=== PATIENT | male | born 1950 | race African-American/Black ===

== ENCOUNTER 2020-10-23 12:02 | Inpatient (IN) ==
[2020-10-23] MEDS ORDERED: AMIODARONE INJ 150 MG in DEXTROSE 5% 100 ML IV ONE ×2 (12:07→13:44)
[2020-10-23] MEDS ORDERED: AMIODARONE 150 MG/3 ML VIAL ONE ×2 (12:11→13:16)
[2020-10-23] MEDS ORDERED: AMIODARONE 450 MG/9 ML VIAL IV ONE (12:13)
[2020-10-23] MEDS ORDERED: propofoL 200 MG/20 ML VIAL IV STA (12:13)
[2020-10-23] MEDS ORDERED: AMIODARONE INJ 450 MG in DEXTROSE 5% 241 ML IV SCH (12:30)
[2020-10-23] MEDS ORDERED: ROCURONIUM 100 MG/10 ML VIAL IV ONE (12:53)
[2020-10-23] MEDS ORDERED: MIDAZOLAM 2 MG/2 ML VIAL ONE (13:10)
[2020-10-23] MEDS ORDERED: LIDOCAINE 1%/EPI INJ 20 ML VIAL ONE (13:10)
[2020-10-23] MEDS ORDERED: fentaNYL 100 MCG/2 ML VIAL ONE (13:10)
[2020-10-23 13:12] LABS: Basophils # 0.1 10*3/uL (0.0-0.2); Basophils % 0.4 % (0.0-0.8); Eosinophils % 0.2 % (0.00-10.9); Hematocrit 34.7 VOL% (42.0-52.0); Hemoglobin 10.8 GM/DL (14.0-18.0); Immature Granulocytes % 3.8 %; Immature Granulocytes Absolute 0.48 #; Lymphocytes % 16.1 % (21.2-54.2); Mean Corpuscular HGB Conc 31.1 GM/DL (32-36); Monocytes % 5.7 % (1.7-12.7); Neutrophils % 73.8 % (38.7-73.9); Platelet Count 298 T/CUMM (130-400); Red Blood Count 4.18 MC/CUMM (3.8-5.5); Red Cell Distribution Width 15.8 % (9.3-17.3); White Blood Count 12.7 T/CUMM (4-12)
[2020-10-23] MEDS ORDERED: MAGNESIUM SULF RIDER 2 GM in PREMIX 1 EACH IV PRN (13:12)
[2020-10-23] MEDS ORDERED: DOCUSATE SODIUM 100 MG CAPSULE PO PRN (13:12)
[2020-10-23] MEDS ORDERED: PROMETHAZINE 25 MG TABLET PO PRN (13:12)
[2020-10-23] MEDS ORDERED: ALUMINUM/MAGNES/SIMETH MAX STR 30 ML UDCUP PO PRN (13:12)
[2020-10-23] MEDS ORDERED: ONDANSETRON 4 MG/2 ML VIAL IV PRN (13:12)
[2020-10-23] MEDS ORDERED: MAGNESIUM SULF RIDER 4 GM in PREMIX 1 EACH IV PRN (13:12)
[2020-10-23] MEDS ORDERED: guaiFENesin/DM ER 600-30 MG TABLET PO PRN (13:12)
[2020-10-23] MEDS ORDERED: HEPARIN/NACL 0.9% 2 UNITS/ML 1,000 ML IV ONE (13:13)
[2020-10-23] MEDS ORDERED: METOPROLOL TARTRATE 5 MG/5 ML VIAL IV ONE (13:16)
[2020-10-23] MEDS ORDERED: NITROGLYCERIN DRIP 50 MG/250 ML BOTTLE IV ONE (13:28)
[2020-10-23 13:36] LABS: Alanine Aminotransferase 75 U/L (16-61); Alkaline Phosphatase 66 U/L (45-117); Aspartate Amino Transferase 94 U/L (0-37); Bilirubin,Total < 0.39 MG/DL (0.2-1.0); Blood Urea Nitrogen 17 MG/DL (7-18); Calcium 8.5 MG/DL (8.5-10.1); Carbon Dioxide 23 MMOL/L (21-32); Estimated Glom Filtration Rate 72 ML/MIN; Glucose 168 MG/DL (74-106); Osmolality,Calculated 286.3 MOS/KG (273-304); Potassium 3.5 MMOL/L (3.5-5.1); Sodium 141 MMOL/L (136-145); Total Protein 8.3 G/DL (6.4-8.3)
[2020-10-23 13:44] LABS: Bilirubin,Urine Negative (Negative); Blood, Urine Small mg/dL (Negative); Glucose,Urine (UA) Negative (Negative); Ketones,Urine Negative (Negative); Mucus,Urine Occasional /LPF (Occasional); Nitrite,Urine Negative (Negative); Protein,Urine 100 MG/DL; RBC,Urine 6 /HPF (0-4); Urine Appearance CLEAR (Clear); Urine Color Straw (Yellow); Urine Specific Gravity 1.012 (1.001-1.035); Urine Urobilinogen < 2.0 EU/DL (0.2-1.0); WBC,Urine 2 /HPF (0-6)
[2020-10-23 13:48] LABS: Barbiturates Screen,Urine Negative (Negative); Benzodiazepines Screen,Urine Negative (Negative); Cannabinoid Screen,Urine Negative (Negative); Opiate Screen,Urine Positive (Negative); Phencyclidine Screen,Urine Negative (Negative)
[2020-10-23] MEDS ORDERED: MAGNESIUM SULF RIDER 2 GM in PREMIX 1 EACH IV ONE (13:48)
[2020-10-23 14:01] LABS: ABG Base Excess -2.7 MMOL/L (-2.5-2.5); ABG HCO3 22.2 MMOL/L (20-26); ABG PCO2 44.1 MM HG (35-48); ABG PH 7.331 (7.35-7.45); ABG TCO2 21.1 MMOL/L (23-27)
[2020-10-23] MEDS ORDERED: PHENYLEPHRINE DRIP 40 MG/250 ML PREMIX IV PRN (14:03)
[2020-10-23] MEDS ORDERED: NOREPINEPHRINE 16 MG in SODIUM CHLORIDE 0.9% 234 ML IV PRN (14:03)
[2020-10-23 14:53] LABS: PT Patient Result 11.1 SECS (9.8-11.9); Partial Thromboplastin Time 28.7 SECS (23.9-33.8)
[2020-10-23 15:06] LABS: Troponin I 0.155 NG/ML (0.00-0.045)
[2020-10-23] MEDS: fentaNYL INJ 1,250 MCG in SODIUM CHLORIDE 0.9% 225 ML IV PRN (15:27)
[2020-10-23] MEDS: MIDAZOLAM 100 MG in SODIUM CHLORIDE 0.9% 80 ML IV PRN (15:30)
[2020-10-23] MEDS ORDERED: NOREPINEPHRINE 4 MG/4 ML VIAL IV ONE (15:41)
[2020-10-23] MEDS: CISATRACURIUM 200 MG in SODIUM CHLORIDE 0.9% 180 ML IV PRN (16:10)
[2020-10-23] MEDS: carvediloL 3.125 MG TABLET PO SCH ×2 (16:11→20:26)
[2020-10-23] MEDS: POTASSIUM CHLORIDE RIDER 10 MEQ in PREMIX 1 EACH IV SCH ×2 (16:11→16:12)
[2020-10-23] MEDS: lisinopriL 2.5 MG TABLET PO SCH (16:12)
[2020-10-23 16:23] LABS: ABG Base Excess -4.2 MMOL/L (-2.5-2.5); ABG PCO2 36.2 MM HG (35-48); ABG PH 7.363 (7.35-7.45); ABG TCO2 18.4 MMOL/L (23-27)
[2020-10-23] MEDS ORDERED: INSULIN LISPRO 100 UNIT/ML SUBCUT SCH (16:30)
[2020-10-23] MEDS ORDERED: SODIUM CHLORIDE 0.9% 1,000 ML IV ONE ×2 (16:33→18:00)
[2020-10-23] MEDS: ENOXAPARIN 40 MG/0.4 ML SYRINGE SUBCUT SCH (16:56)
[2020-10-23] MEDS: POTASSIUM CHLORIDE RIDER 20 MEQ in PREMIX 1 EACH IV SCH ×2 (16:56→19:39)
[2020-10-23] MEDS ORDERED: PHENYLEPHRINE INJ 160 MG in SODIUM CHLORIDE 0.9% 234 ML IV PRN (16:58)
[2020-10-23] MEDS ORDERED: INSULIN REGULAR 100 UNIT/ML IV ONE ×2 (17:57→19:28)
[2020-10-23 18:37] LABS: Basophils % 0.2 % (0.0-0.8); Eosinophils % 0.1 % (0.00-10.9); Hematocrit 31.1 VOL% (42.0-52.0); Hemoglobin 9.4 GM/DL (14.0-18.0); Immature Granulocytes % 1.2 %; Immature Granulocytes Absolute 0.23 #; Lymphocytes # 1.2 10*3/uL (1.4-4.0); Lymphocytes % 6.2 % (21.2-54.2); Mean Corpuscular HGB Conc 30.2 GM/DL (32-36); Mean Corpuscular Volume 84.3 FL (87-102); Mean Platelet Volume 8.9 FL (9.6-12.0); Monocytes % 5.1 % (1.7-12.7); Neutrophils % 87.2 % (38.7-73.9); Platelet Count 306 T/CUMM (130-400); Red Blood Count 3.69 MC/CUMM (3.8-5.5); Red Cell Distribution Width 15.8 % (9.3-17.3); White Blood Count 19.5 T/CUMM (4-12)
[2020-10-23 18:57] LABS: CKMB % 3.8 %; Calcium 7.9 MG/DL (8.5-10.1); Potassium 4.1 MMOL/L (3.5-5.1)
[2020-10-23 18:59] LABS: Troponin I 2.64 NG/ML (0.00-0.045)
[2020-10-23] MEDS: ALBUTEROL/IPRATROPIUM 3 ML NEB RESP TX SCH (19:03)
[2020-10-23 19:04] LABS: PT Patient Result 11.2 SECS (9.8-11.9); Partial Thromboplastin Time 30.2 SECS (23.9-33.8)
[2020-10-24 00:13] LABS: ABG Base Excess -3.9 MMOL/L (-2.5-2.5); ABG HCO3 19.9 MMOL/L (20-26); ABG Oxygen Saturation 99.3 % (95-100); ABG PCO2 31.4 MM HG (35-48); ABG PO2 307.7 MM HG (80-95); ABG TCO2 20.9 MMOL/L (23-27)
[2020-10-24 00:35] LABS: CKMB % 4.8 %; Calcium 7.8 MG/DL (8.5-10.1); Osmolality,Calculated 282.1 MOS/KG (273-304); Potassium 4.5 MMOL/L (3.5-5.1)
[2020-10-24 00:38] LABS: Troponin I 3.76 NG/ML (0.00-0.045)
[2020-10-24] MEDS ORDERED: INSULIN REGULAR 100 UNIT/ML IV ONE ×7 (00:49→22:29)
[2020-10-24] MEDS: ALBUTEROL/IPRATROPIUM 3 ML NEB RESP TX SCH ×4 (01:18→19:47)
[2020-10-24 01:33] LABS: Basophils % 0.1 % (0.0-0.8); Hematocrit 28.7 VOL% (42.0-52.0); Hemoglobin 8.9 GM/DL (14.0-18.0); Immature Granulocytes % 0.9 %; Immature Granulocytes Absolute 0.12 #; Lymphocytes # 1.2 10*3/uL (1.4-4.0); Lymphocytes % 9.2 % (21.2-54.2); Mean Corpuscular Volume 83.4 FL (87-102); Mean Platelet Volume 9.5 FL (9.6-12.0); Monocytes % 3.3 % (1.7-12.7); Neutrophils % 86.5 % (38.7-73.9); Platelet Count 250 T/CUMM (130-400); Red Blood Count 3.44 MC/CUMM (3.8-5.5); Red Cell Distribution Width 15.9 % (9.3-17.3); White Blood Count 13.2 T/CUMM (4-12)
[2020-10-24 01:40] LABS: INR 1.1; PT Patient Result 11.3 SECS (9.8-11.9); Partial Thromboplastin Time 34.6 SECS (23.9-33.8)
[2020-10-24] MEDS: ENOXAPARIN 40 MG/0.4 ML SYRINGE SUBCUT SCH ×2 (02:54→15:14)
[2020-10-24] MEDS: fentaNYL INJ 1,250 MCG in SODIUM CHLORIDE 0.9% 225 ML IV PRN ×2 (02:56→13:45)
[2020-10-24 04:02] LABS: Basophils % 0.1 % (0.0-0.8); Eosinophils % 0.1 % (0.00-10.9); Hematocrit 28.2 VOL% (42.0-52.0); Hemoglobin 8.9 GM/DL (14.0-18.0); Immature Granulocytes Absolute 0.11 #; Lymphocytes # 1.4 10*3/uL (1.4-4.0); Lymphocytes % 12.5 % (21.2-54.2); Mean Corpuscular HGB Conc 31.6 GM/DL (32-36); Mean Corpuscular Volume 82.5 FL (87-102); Mean Platelet Volume 8.6 FL (9.6-12.0); Monocytes % 4.5 % (1.7-12.7); Neutrophils % 81.8 % (38.7-73.9); Platelet Count 231 T/CUMM (130-400); Red Blood Count 3.42 MC/CUMM (3.8-5.5); Red Cell Distribution Width 15.8 % (9.3-17.3); White Blood Count 11.4 T/CUMM (4-12)
[2020-10-24] MEDS: SODIUM CHLORIDE 0.9% 1,000 ML IV SCH ×2 (04:04→17:13)
[2020-10-24 04:21] LABS: Alanine Aminotransferase 54 U/L (16-61); Albumin 2.4 G/DL (3.4-5.0); Alkaline Phosphatase 52 U/L (45-117); Aspartate Amino Transferase 47 U/L (0-37); Bilirubin,Total < 0.39 MG/DL (0.2-1.0); Blood Urea Nitrogen 17 MG/DL (7-18); CKMB % 5.4 %; Calcium 8.1 MG/DL (8.5-10.1); Carbon Dioxide 19 MMOL/L (21-32); Estimated Glom Filtration Rate 118 ML/MIN; Glucose 225 MG/DL (74-106); HDL Cholesterol 35 MG/DL (40-60); Osmolality,Calculated 283.7 MOS/KG (273-304); Potassium 3.6 MMOL/L (3.5-5.1); Sodium 138 MMOL/L (136-145); Total Protein 6.5 G/DL (6.4-8.3); Triglycerides 130 MG/DL (2-150)
[2020-10-24 04:26] LABS: PT Patient Result 11.2 SECS (9.8-11.9)
[2020-10-24 05:10] LABS: ABG Base Excess -2.3 MMOL/L (-2.5-2.5); ABG HCO3 22.5 MMOL/L (20-26); ABG Oxygen Saturation 99.9 % (95-100); ABG PCO2 31.4 MM HG (35-48); ABG PH 7.438 (7.35-7.45); ABG TCO2 19.5 MMOL/L (23-27)
[2020-10-24] MEDS ORDERED: POTASSIUM CHLORIDE RIDER 20 MEQ in PREMIX 1 EACH IV ONE ×3 (05:30→17:05)
[2020-10-24] MEDS ORDERED: DOPamine 800 MG/250 ML PREMIX IV PRN (05:32)
[2020-10-24] MEDS: ASPIRIN CHEW 81 MG TABLET PO SCH (08:07)
[2020-10-24] MEDS: PANTOPRAZOLE 40 MG VIAL IV SCH (08:07)
[2020-10-24] MEDS: lisinopriL 2.5 MG TABLET PO SCH (08:15)
[2020-10-24] MEDS: MIDAZOLAM 100 MG in SODIUM CHLORIDE 0.9% 80 ML IV PRN ×2 (08:19→20:57)
[2020-10-24] MEDS: CISATRACURIUM 200 MG in SODIUM CHLORIDE 0.9% 180 ML IV PRN (08:20)
[2020-10-24] MEDS ORDERED: PANTOPRAZOLE 40 MG TABLET PO SCH (09:00)
[2020-10-24 10:11] LABS: ABG Base Excess -0.7 MMOL/L (-2.5-2.5); ABG HCO3 23.9 MMOL/L (20-26); ABG PCO2 29.2 MM HG (35-48); ABG PH 7.485 (7.35-7.45); ABG TCO2 20.1 MMOL/L (23-27); Basophils % 0.2 % (0.0-0.8); Hematocrit 28.5 VOL% (42.0-52.0); Hemoglobin 9.2 GM/DL (14.0-18.0); Immature Granulocytes % 0.7 %; Immature Granulocytes Absolute 0.07 #; Lymphocytes # 1.1 10*3/uL (1.4-4.0); Lymphocytes % 11.2 % (21.2-54.2); Mean Corpuscular HGB Conc 32.3 GM/DL (32-36); Mean Corpuscular Volume 81.9 FL (87-102); Mean Platelet Volume 9.2 FL (9.6-12.0); Neutrophils % 83.9 % (38.7-73.9); Platelet Count 228 T/CUMM (130-400); Red Blood Count 3.48 MC/CUMM (3.8-5.5); Red Cell Distribution Width 15.8 % (9.3-17.3); White Blood Count 10.1 T/CUMM (4-12)
[2020-10-24 10:26] LABS: PT Patient Result 11.2 SECS (9.8-11.9); Partial Thromboplastin Time 36.2 SECS (23.9-33.8)
[2020-10-24 10:38] LABS: CKMB % 5.2 %; Calcium 7.9 MG/DL (8.5-10.1); Osmolality,Calculated 287.4 MOS/KG (273-304); Potassium 3.4 MMOL/L (3.5-5.1)
[2020-10-24 10:40] LABS: Troponin I 3.02 NG/ML (0.00-0.045)
[2020-10-24] MEDS ORDERED: MAGNESIUM SULF RIDER 2 GM in PREMIX 1 EACH IV ONE (12:05)
[2020-10-24 16:26] LABS: PT Patient Result 11.2 SECS (9.8-11.9); Partial Thromboplastin Time 36.6 SECS (23.9-33.8)
[2020-10-24 16:49] LABS: CKMB % 5.5 %; Calcium 7.9 MG/DL (8.5-10.1); Osmolality,Calculated 281.7 MOS/KG (273-304); Potassium 3.3 MMOL/L (3.5-5.1)
[2020-10-24 17:00] LABS: Troponin I 2.29 NG/ML (0.00-0.045)
[2020-10-24] MEDS ORDERED: SODIUM CHLORIDE 0.9% 100 ML IV ONE (17:31)
[2020-10-24] MEDS: hydrALAZINE 20 MG/1 ML VIAL IV PRN (19:49)
[2020-10-24] MEDS: ROSUVASTATIN 20 MG TABLET PO SCH (21:46)
[2020-10-24 21:54] LABS: Basophils % 0.2 % (0.0-0.8); Hematocrit 30.2 VOL% (42.0-52.0); Hemoglobin 9.5 GM/DL (14.0-18.0); Immature Granulocytes % 0.9 %; Immature Granulocytes Absolute 0.08 #; Lymphocytes # 0.8 10*3/uL (1.4-4.0); Lymphocytes % 8.7 % (21.2-54.2); Mean Corpuscular HGB Conc 31.5 GM/DL (32-36); Mean Corpuscular Volume 81.6 FL (87-102); Monocytes % 4.4 % (1.7-12.7); Neutrophils % 85.8 % (38.7-73.9); Platelet Count 219 T/CUMM (130-400); Red Cell Distribution Width 15.6 % (9.3-17.3); White Blood Count 9.4 T/CUMM (4-12)
[2020-10-24 22:06] LABS: INR 1.1; PT Patient Result 11.3 SECS (9.8-11.9); Partial Thromboplastin Time 38.8 SECS (23.9-33.8)
[2020-10-24 22:16] LABS: CKMB % 4.6 %; Calcium 7.6 MG/DL (8.5-10.1); Osmolality,Calculated 282.5 MOS/KG (273-304); Potassium 3.6 MMOL/L (3.5-5.1)
[2020-10-24 22:17] LABS: Troponin I 1.81 NG/ML (0.00-0.045)
[2020-10-25] MEDS ORDERED: INSULIN REGULAR 100 UNIT/ML IV ONE ×5 (00:46→08:00)
[2020-10-25] MEDS: CISATRACURIUM 200 MG in SODIUM CHLORIDE 0.9% 180 ML IV PRN (01:05)
[2020-10-25] MEDS: fentaNYL INJ 1,250 MCG in SODIUM CHLORIDE 0.9% 225 ML IV PRN (01:15)
[2020-10-25] MEDS: ALBUTEROL/IPRATROPIUM 3 ML NEB RESP TX SCH ×4 (01:30→19:39)
[2020-10-25] MEDS: ENOXAPARIN 40 MG/0.4 ML SYRINGE SUBCUT SCH ×2 (02:48→13:10)
[2020-10-25 04:25] LABS: ABG Base Excess -2.3 MMOL/L (-2.5-2.5); ABG HCO3 22.5 MMOL/L (20-26); ABG Oxygen Saturation 99.2 % (95-100); ABG PCO2 33.7 MM HG (35-48); ABG PH 7.416 (7.35-7.45); ABG TCO2 19.7 MMOL/L (23-27)
[2020-10-25 04:36] LABS: Basophils % 0.1 % (0.0-0.8); Hematocrit 29.6 VOL% (42.0-52.0); Hemoglobin 9.7 GM/DL (14.0-18.0); Immature Granulocytes % 0.9 %; Immature Granulocytes Absolute 0.11 #; Lymphocytes # 0.5 10*3/uL (1.4-4.0); Lymphocytes % 4.1 % (21.2-54.2); Mean Corpuscular HGB Conc 32.8 GM/DL (32-36); Mean Corpuscular Volume 80.4 FL (87-102); Mean Platelet Volume 9.1 FL (9.6-12.0); Monocytes % 4.3 % (1.7-12.7); Neutrophils % 90.6 % (38.7-73.9); Platelet Count 239 T/CUMM (130-400); Red Blood Count 3.68 MC/CUMM (3.8-5.5); Red Cell Distribution Width 15.8 % (9.3-17.3); White Blood Count 12.7 T/CUMM (4-12)
[2020-10-25 04:52] LABS: Alanine Aminotransferase 44 U/L (16-61); Albumin 2.3 G/DL (3.4-5.0); Alkaline Phosphatase 55 U/L (45-117); Aspartate Amino Transferase 30 U/L (0-37); Bilirubin,Total < 0.39 MG/DL (0.2-1.0); Blood Urea Nitrogen 14 MG/DL (7-18); Calcium 7.6 MG/DL (8.5-10.1); Carbon Dioxide 22 MMOL/L (21-32); Estimated Glom Filtration Rate 96 ML/MIN; Glucose 185 MG/DL (74-106); Osmolality,Calculated 284.4 MOS/KG (273-304); Sodium 140 MMOL/L (136-145); Total Protein 6.6 G/DL (6.4-8.3)
[2020-10-25 05:03] LABS: PT Patient Result 11.2 SECS (9.8-11.9)
[2020-10-25 05:07] LABS: Band Neutrophils 4 % (0-10); Hypochromasia 1+; Lymphocytes 4 % (20-55); Microcytosis 1+; Myelocytes 1 %; Segmented Neutrophils 87 % (50-85); Total Cells Counted 100
[2020-10-25 05:08] LABS: Platelet Estimate Normal
[2020-10-25] MEDS: SODIUM CHLORIDE 0.9% 1,000 ML IV SCH (06:20)
[2020-10-25] MEDS ORDERED: SODIUM CHLORIDE 0.9% 500 ML IV ONE (08:00)
[2020-10-25 08:06] LABS: Basophils % 0.1 % (0.0-0.8); Hematocrit 30.4 VOL% (42.0-52.0); Hemoglobin 9.4 GM/DL (14.0-18.0); Immature Granulocytes Absolute 0.14 #; Lymphocytes # 0.8 10*3/uL (1.4-4.0); Lymphocytes % 5.8 % (21.2-54.2); Mean Corpuscular HGB Conc 30.9 GM/DL (32-36); Mean Corpuscular Volume 81.9 FL (87-102); Mean Platelet Volume 9.1 FL (9.6-12.0); Monocytes % 4.6 % (1.7-12.7); Neutrophils % 88.5 % (38.7-73.9); Platelet Count 255 T/CUMM (130-400); Red Blood Count 3.71 MC/CUMM (3.8-5.5); White Blood Count 13.4 T/CUMM (4-12)
[2020-10-25 08:21] LABS: Alanine Aminotransferase 41 U/L (16-61); Albumin 2.2 G/DL (3.4-5.0); Alkaline Phosphatase 55 U/L (45-117); Aspartate Amino Transferase 27 U/L (0-37); Bilirubin,Total < 0.39 MG/DL (0.2-1.0); Blood Urea Nitrogen 16 MG/DL (7-18); CKMB % 4.1 %; Calcium 7.8 MG/DL (8.5-10.1); Carbon Dioxide 22 MMOL/L (21-32); Estimated Glom Filtration Rate 80 ML/MIN; Glucose 195 MG/DL (74-106); Osmolality,Calculated 280.7 MOS/KG (273-304); Potassium 4.1 MMOL/L (3.5-5.1); Sodium 138 MMOL/L (136-145); Total Protein 6.6 G/DL (6.4-8.3)
[2020-10-25 08:23] LABS: Partial Thromboplastin Time 39.1 SECS (23.9-33.8)
[2020-10-25] MEDS: PANTOPRAZOLE 40 MG VIAL IV SCH (09:24)
[2020-10-25] MEDS: DEXTROSE 5% NACL 0.45% 1,000 ML IV SCH ×2 (09:24→19:55)
[2020-10-25] MEDS: lisinopriL 2.5 MG TABLET PO SCH (09:24)
[2020-10-25] MEDS: ASPIRIN CHEW 81 MG TABLET PO SCH (09:24)
[2020-10-25] MEDS ORDERED: lisinopriL 5 MG TABLET PO SCH (09:31)
[2020-10-25] MEDS: hydrALAZINE 20 MG/1 ML VIAL IV PRN ×3 (10:03→23:54)
[2020-10-25] MEDS ORDERED: METOPROLOL TARTRATE 5 MG/5 ML VIAL IV ONE ×2 (11:45→12:10)
[2020-10-25] MEDS ORDERED: DEXTROSE 50% 25 GM/50 ML VIAL IV PRN (12:13)
[2020-10-25] MEDS ORDERED: GLUCAGON 1 MG VIAL IM PRN (12:13)
[2020-10-25] MEDS: INSULIN REGULAR 100 UNIT/ML SUBCUT SCH ×3 (12:53→20:38)
[2020-10-25] MEDS: MIDAZOLAM 100 MG in SODIUM CHLORIDE 0.9% 80 ML IV PRN (15:11)
[2020-10-25 15:41] LABS: Alanine Aminotransferase 38 U/L (16-61); Albumin 2.2 G/DL (3.4-5.0); Alkaline Phosphatase 57 U/L (45-117); Aspartate Amino Transferase 27 U/L (0-37); Bilirubin,Total < 0.39 MG/DL (0.2-1.0); Blood Urea Nitrogen 21 MG/DL (7-18); Calcium 7.5 MG/DL (8.5-10.1); Carbon Dioxide 22 MMOL/L (21-32); Estimated Glom Filtration Rate 46 ML/MIN; Glucose 298 MG/DL (74-106); Potassium 4.5 MMOL/L (3.5-5.1); Sodium 136 MMOL/L (136-145); Total Protein 6.7 G/DL (6.4-8.3)
[2020-10-25] MEDS ORDERED: SODIUM BICARBONATE 50 MEQ/50 ML VIAL IV ONE (17:51)
[2020-10-25] MEDS ORDERED: LACTATED RINGERS 1,000 ML IV ONE (17:51)
[2020-10-25] MEDS: ROSUVASTATIN 20 MG TABLET PO SCH (20:38)
[2020-10-25] MEDS: carvediloL 3.125 MG TABLET PO SCH (21:25)
[2020-10-26] MEDS: INSULIN REGULAR 100 UNIT/ML SUBCUT SCH ×6 (00:55→20:41)
[2020-10-26] MEDS: ALBUTEROL/IPRATROPIUM 3 ML NEB RESP TX SCH ×4 (01:51→19:52)
[2020-10-26] MEDS: DEXTROSE 5% NACL 0.45% 1,000 ML IV SCH ×3 (01:53→09:19)
[2020-10-26] MEDS: ENOXAPARIN 40 MG/0.4 ML SYRINGE SUBCUT SCH ×2 (02:43→14:55)
[2020-10-26] MEDS: fentaNYL INJ 1,250 MCG in SODIUM CHLORIDE 0.9% 225 ML IV PRN ×3 (03:30→22:11)
[2020-10-26 05:42] LABS: Basophils % 0.1 % (0.0-0.8); Hemoglobin 9.1 GM/DL (14.0-18.0); Immature Granulocytes % 1.1 %; Immature Granulocytes Absolute 0.14 #; Lymphocytes # 0.8 10*3/uL (1.4-4.0); Lymphocytes % 6.2 % (21.2-54.2); Mean Corpuscular HGB Conc 32.5 GM/DL (32-36); Mean Corpuscular Volume 80.5 FL (87-102); Mean Platelet Volume 9.7 FL (9.6-12.0); Monocytes % 4.5 % (1.7-12.7); Neutrophils % 88.1 % (38.7-73.9); Platelet Count 260 T/CUMM (130-400); Red Blood Count 3.48 MC/CUMM (3.8-5.5); Red Cell Distribution Width 16.2 % (9.3-17.3); White Blood Count 12.5 T/CUMM (4-12)
[2020-10-26 05:50] LABS: Alanine Aminotransferase 32 U/L (16-61); Alkaline Phosphatase 58 U/L (45-117); Aspartate Amino Transferase 33 U/L (0-37); Bilirubin,Total < 0.39 MG/DL (0.2-1.0); Blood Urea Nitrogen 30 MG/DL (7-18); Calcium 7.6 MG/DL (8.5-10.1); Carbon Dioxide 22 MMOL/L (21-32); Estimated Glom Filtration Rate 33 ML/MIN; Glucose 259 MG/DL (74-106); Sodium 136 MMOL/L (136-145); Total Protein 6.4 G/DL (6.4-8.3)
[2020-10-26 05:52] LABS: ABG Base Excess -3.2 MMOL/L (-2.5-2.5); ABG HCO3 21.8 MMOL/L (20-26); ABG Oxygen Saturation 99.6 % (95-100); ABG PCO2 32.7 MM HG (35-48); ABG PH 7.412 (7.35-7.45); ABG TCO2 19.2 MMOL/L (23-27)
[2020-10-26] MEDS: carvediloL 3.125 MG TABLET PO SCH ×2 (08:42→20:40)
[2020-10-26] MEDS: ASPIRIN CHEW 81 MG TABLET PO SCH (08:42)
[2020-10-26] MEDS: PANTOPRAZOLE 40 MG VIAL IV SCH (08:43)
[2020-10-26] MEDS: SODIUM CHLORIDE 0.9% 1,000 ML IV SCH ×4 (09:17→22:15)
[2020-10-26] MEDS ORDERED: INSULIN GLARGINE 100 UNIT/ML SUBCUT ONE (10:04)
[2020-10-26] MEDS: MIDAZOLAM 100 MG in SODIUM CHLORIDE 0.9% 80 ML IV PRN ×2 (11:30→20:59)
[2020-10-26] MEDS ORDERED: MORPHINE 4 MG/1 ML VIAL IV ONE (18:03)
[2020-10-26] MEDS ORDERED: SODIUM CHLORIDE 0.9% 1,000 ML IV ONE (18:12)
[2020-10-26] MEDS: ROSUVASTATIN 20 MG TABLET PO SCH (20:40)
[2020-10-26] MEDS: INSULIN GLARGINE 100 UNIT/ML SUBCUT SCH (20:42)
[2020-10-27] MEDS: ALBUTEROL/IPRATROPIUM 3 ML NEB RESP TX SCH ×4 (00:50→19:37)
[2020-10-27] MEDS: INSULIN REGULAR 100 UNIT/ML SUBCUT SCH ×6 (00:57→21:35)
[2020-10-27] MEDS: ENOXAPARIN 40 MG/0.4 ML SYRINGE SUBCUT SCH ×2 (01:03→16:06)
[2020-10-27] MEDS: fentaNYL INJ 1,250 MCG in SODIUM CHLORIDE 0.9% 225 ML IV PRN (02:30)
[2020-10-27] MEDS: fentaNYL INJ 2,500 MCG in SODIUM CHLORIDE 0.9% 450 ML IV PRN ×2 (02:30→20:33)
[2020-10-27] MEDS: SODIUM CHLORIDE 0.9% 1,000 ML IV SCH ×3 (02:41→11:29)
[2020-10-27 04:18] LABS: Basophils % 0.1 % (0.0-0.8); Eosinophils % 0.1 % (0.00-10.9); Hematocrit 25.7 VOL% (42.0-52.0); Hemoglobin 7.9 GM/DL (14.0-18.0); Immature Granulocytes Absolute 0.13 #; Lymphocytes # 1.1 10*3/uL (1.4-4.0); Lymphocytes % 7.8 % (21.2-54.2); Mean Corpuscular HGB Conc 30.7 GM/DL (32-36); Mean Corpuscular Volume 83.2 FL (87-102); Mean Platelet Volume 9.3 FL (9.6-12.0); Monocytes % 5.3 % (1.7-12.7); Neutrophils % 85.7 % (38.7-73.9); Platelet Count 244 T/CUMM (130-400); Red Blood Count 3.09 MC/CUMM (3.8-5.5); Red Cell Distribution Width 16.6 % (9.3-17.3); White Blood Count 13.7 T/CUMM (4-12)
[2020-10-27 04:23] LABS: ABG Base Excess -6.6 MMOL/L (-2.5-2.5); ABG HCO3 18.1 MMOL/L (20-26); ABG Oxygen Saturation 97.4 % (95-100); ABG PCO2 32.8 MM HG (35-48); ABG TCO2 19.1 MMOL/L (23-27)
[2020-10-27 04:53] LABS: Albumin 1.8 G/DL (3.4-5.0); Bilirubin,Total 0.7 MG/DL (0.2-1.0); Calcium 6.6 MG/DL (8.5-10.1); Osmolality,Calculated 290.5 MOS/KG (273-304); Potassium 4.9 MMOL/L (3.5-5.1); Total Protein 4.9 G/DL (6.4-8.3)
[2020-10-27] MEDS: ASPIRIN CHEW 81 MG TABLET PO SCH (08:37)
[2020-10-27] MEDS: carvediloL 3.125 MG TABLET PO SCH ×2 (08:37→21:35)
[2020-10-27] MEDS: PANTOPRAZOLE 40 MG VIAL IV SCH (08:38)
[2020-10-27] MEDS: MIDAZOLAM 100 MG in SODIUM CHLORIDE 0.9% 80 ML IV PRN (14:53)
[2020-10-27] MEDS: METOCLOPRAMIDE 10 MG/2 ML VIAL IV SCH ×2 (15:30→18:10)
[2020-10-27] MEDS: HEPARIN 5,000 UNIT/1 ML VIAL SUBCUT SCH (16:05)
[2020-10-27 16:51] LABS: Hepatitis B Core IgM Quant < 0.05 Index; Hepatitis B Surface Ag Quant < 0.10 Index; Hepatitis B Surface Ag Result Non-Reactive (NonReactive); Hepatitis C Virus Ab Quant 0.04 Index; Hepatitis C Virus Ab Result Non-Reactive (NonReactive)
[2020-10-27] MEDS: INSULIN GLARGINE 100 UNIT/ML SUBCUT SCH (21:35)
[2020-10-27] MEDS: ROSUVASTATIN 20 MG TABLET PO SCH (21:35)
[2020-10-28] MEDS: ALBUTEROL/IPRATROPIUM 3 ML NEB RESP TX SCH ×4 (00:44→19:29)
[2020-10-28] MEDS: INSULIN REGULAR 100 UNIT/ML SUBCUT SCH ×6 (01:12→20:54)
[2020-10-28] MEDS: METOCLOPRAMIDE 10 MG/2 ML VIAL IV SCH ×4 (02:34→19:04)
[2020-10-28] MEDS: HEPARIN 5,000 UNIT/1 ML VIAL SUBCUT SCH ×2 (02:34→17:10)
[2020-10-28 04:43] LABS: ABG Base Excess -8.5 MMOL/L (-2.5-2.5); ABG HCO3 17.6 MMOL/L (20-26); ABG Oxygen Saturation 98.3 % (95-100); ABG PCO2 34.7 MM HG (35-48); ABG PH 7.301 (7.35-7.45); ABG TCO2 15.6 MMOL/L (23-27)
[2020-10-28 04:57] LABS: Basophils % 0.2 % (0.0-0.8); Eosinophils % 0.3 % (0.00-10.9); Hematocrit 24.7 VOL% (42.0-52.0); Hemoglobin 7.7 GM/DL (14.0-18.0); Immature Granulocytes % 0.5 %; Immature Granulocytes Absolute 0.05 #; Lymphocytes # 0.9 10*3/uL (1.4-4.0); Lymphocytes % 8.1 % (21.2-54.2); Mean Corpuscular HGB Conc 31.2 GM/DL (32-36); Mean Corpuscular Volume 82.1 FL (87-102); Monocytes % 9.7 % (1.7-12.7); Neutrophils % 81.2 % (38.7-73.9); Platelet Count 245 T/CUMM (130-400); Red Blood Count 3.01 MC/CUMM (3.8-5.5); Red Cell Distribution Width 17.1 % (9.3-17.3); White Blood Count 11.1 T/CUMM (4-12)
[2020-10-28 05:08] LABS: Calcium 7.3 MG/DL (8.5-10.1); Osmolality,Calculated 293.7 MOS/KG (273-304); Potassium 5.5 MMOL/L (3.5-5.1)
[2020-10-28] MEDS ORDERED: HEPARIN 10,000 UNIT/10 ML VIAL IV PRN (06:38)
[2020-10-28] MEDS: ASPIRIN CHEW 81 MG TABLET PO SCH (09:36)
[2020-10-28] MEDS: PANTOPRAZOLE 40 MG VIAL IV SCH (09:36)
[2020-10-28] MEDS: carvediloL 3.125 MG TABLET PO SCH ×2 (09:55→21:16)
[2020-10-28] MEDS: fentaNYL INJ 2,500 MCG in SODIUM CHLORIDE 0.9% 450 ML IV PRN (12:15)
[2020-10-28] MEDS: MIDAZOLAM 100 MG in SODIUM CHLORIDE 0.9% 80 ML IV PRN (12:45)
[2020-10-28] MEDS: INSULIN GLARGINE 100 UNIT/ML SUBCUT SCH (21:01)
[2020-10-28] MEDS: ROSUVASTATIN 20 MG TABLET PO SCH (21:16)
[2020-10-29] MEDS: ALBUTEROL/IPRATROPIUM 3 ML NEB RESP TX SCH ×4 (00:11→19:46)
[2020-10-29] MEDS: METOCLOPRAMIDE 10 MG/2 ML VIAL IV SCH ×4 (00:39→17:39)
[2020-10-29] MEDS: INSULIN REGULAR 100 UNIT/ML SUBCUT SCH ×6 (00:45→20:30)
[2020-10-29] MEDS: fentaNYL INJ 2,500 MCG in SODIUM CHLORIDE 0.9% 450 ML IV PRN ×2 (01:12→14:28)
[2020-10-29 04:40] LABS: ABG Base Excess -7.9 MMOL/L (-2.5-2.5); ABG Oxygen Saturation 98.5 % (95-100); ABG PCO2 33.8 MM HG (35-48); ABG TCO2 16.3 MMOL/L (23-27)
[2020-10-29 05:07] LABS: Basophils % 0.1 % (0.0-0.8); Eosinophils % 0.1 % (0.00-10.9); Hematocrit 19.5 VOL% (42.0-52.0); Immature Granulocytes % 0.9 %; Immature Granulocytes Absolute 0.09 #; Lymphocytes # 0.8 10*3/uL (1.4-4.0); Lymphocytes % 8.3 % (21.2-54.2); Mean Corpuscular HGB Conc 32.8 GM/DL (32-36); Mean Corpuscular Volume 79.6 FL (87-102); Mean Platelet Volume 9.3 FL (9.6-12.0); Monocytes % 10.4 % (1.7-12.7); Neutrophils % 80.2 % (38.7-73.9); Platelet Count 224 T/CUMM (130-400); Red Blood Count 2.45 MC/CUMM (3.8-5.5); Red Cell Distribution Width 16.7 % (9.3-17.3); White Blood Count 9.8 T/CUMM (4-12)
[2020-10-29] MEDS: HEPARIN 5,000 UNIT/1 ML VIAL SUBCUT SCH ×2 (05:09→16:21)
[2020-10-29 05:10] LABS: Hemoglobin 6.4 GM/DL (14.0-18.0)
[2020-10-29] MEDS ORDERED: SODIUM BICARBONATE 50 MEQ/50 ML VIAL IV ONE ×2 (05:25→05:27)
[2020-10-29] MEDS ORDERED: PHENYLEPHRINE DRIP 40 MG/250 ML PREMIX IV PRN (05:27)
[2020-10-29 05:38] LABS: Calcium 7.4 MG/DL (8.5-10.1); Osmolality,Calculated 303.4 MOS/KG (273-304); Potassium 5.3 MMOL/L (3.5-5.1)
[2020-10-29] MEDS: PANTOPRAZOLE 40 MG VIAL IV SCH (08:43)
[2020-10-29] MEDS: ASPIRIN CHEW 81 MG TABLET PO SCH (08:43)
[2020-10-29] MEDS: carvediloL 3.125 MG TABLET PO SCH ×2 (08:43→20:31)
[2020-10-29] MEDS: MIDAZOLAM 100 MG in SODIUM CHLORIDE 0.9% 80 ML IV PRN (16:16)
[2020-10-29] MEDS: ROSUVASTATIN 20 MG TABLET PO SCH (20:31)
[2020-10-29] MEDS: INSULIN GLARGINE 100 UNIT/ML SUBCUT SCH (21:42)
[2020-10-30] MEDS: METOCLOPRAMIDE 10 MG/2 ML VIAL IV SCH ×4 (00:07→18:23)
[2020-10-30] MEDS: INSULIN REGULAR 100 UNIT/ML SUBCUT SCH ×6 (00:08→17:49)
[2020-10-30] MEDS: ALBUTEROL/IPRATROPIUM 3 ML NEB RESP TX SCH ×4 (01:28→19:47)
[2020-10-30] MEDS: fentaNYL INJ 2,500 MCG in SODIUM CHLORIDE 0.9% 450 ML IV PRN ×2 (02:30→16:36)
[2020-10-30] MEDS: HEPARIN 5,000 UNIT/1 ML VIAL SUBCUT SCH ×2 (04:21→16:30)
[2020-10-30 04:36] LABS: Basophils % 0.1 % (0.0-0.8); Eosinophils # 0.1 10*3/uL (0.0-0.87); Eosinophils % 1.1 % (0.00-10.9); Hematocrit 34.7 VOL% (42.0-52.0); Hemoglobin 11.3 GM/DL (14.0-18.0); Immature Granulocytes Absolute 0.15 #; Lymphocytes # 0.7 10*3/uL (1.4-4.0); Lymphocytes % 9.6 % (21.2-54.2); Mean Corpuscular HGB Conc 32.6 GM/DL (32-36); Mean Corpuscular Volume 78.3 FL (87-102); Mean Platelet Volume 8.7 FL (9.6-12.0); Monocytes % 9.9 % (1.7-12.7); Neutrophils % 77.3 % (38.7-73.9); Platelet Count 172 T/CUMM (130-400); Red Blood Count 4.43 MC/CUMM (3.8-5.5); Red Cell Distribution Width 16.8 % (9.3-17.3); White Blood Count 7.6 T/CUMM (4-12)
[2020-10-30 04:50] LABS: Calcium 7.4 MG/DL (8.5-10.1); Osmolality,Calculated 295.7 MOS/KG (273-304)
[2020-10-30 05:07] LABS: ABG HCO3 21.1 MMOL/L (20-26); ABG Oxygen Saturation 98.7 % (95-100); ABG PCO2 35.7 MM HG (35-48); ABG TCO2 18.5 MMOL/L (23-27)
[2020-10-30] MEDS: ASPIRIN CHEW 81 MG TABLET PO SCH (08:47)
[2020-10-30] MEDS: carvediloL 3.125 MG TABLET PO SCH ×2 (08:47→21:11)
[2020-10-30] MEDS: PANTOPRAZOLE 40 MG VIAL IV SCH (08:48)
[2020-10-30] MEDS: MIDAZOLAM 100 MG in SODIUM CHLORIDE 0.9% 80 ML IV PRN (15:48)
[2020-10-30] MEDS: ROSUVASTATIN 20 MG TABLET PO SCH (21:11)
[2020-10-30] MEDS: INSULIN GLARGINE 100 UNIT/ML SUBCUT SCH (21:11)
[2020-10-31] MEDS: METOCLOPRAMIDE 10 MG/2 ML VIAL IV SCH ×4 (00:40→18:24)
[2020-10-31] MEDS: INSULIN REGULAR 100 UNIT/ML SUBCUT SCH ×4 (00:45→18:14)
[2020-10-31] MEDS: ALBUTEROL/IPRATROPIUM 3 ML NEB RESP TX SCH ×4 (01:01→19:38)
[2020-10-31 04:37] LABS: ABG Base Excess -4.2 MMOL/L (-2.5-2.5); ABG Oxygen Saturation 98.5 % (95-100); ABG PCO2 33.9 MM HG (35-48); ABG PH 7.389 (7.35-7.45); ABG PO2 124.8 MM HG (80-95); ABG TCO2 21.1 MMOL/L (23-27)
[2020-10-31 04:52] LABS: Calcium 7.8 MG/DL (8.5-10.1); Osmolality,Calculated 296.8 MOS/KG (273-304); Potassium 5.1 MMOL/L (3.5-5.1)
[2020-10-31 05:00] LABS: Basophils % 0.2 % (0.0-0.8); Eosinophils # 0.1 10*3/uL (0.0-0.87); Eosinophils % 0.5 % (0.00-10.9); Hematocrit 25.9 VOL% (42.0-52.0); Immature Granulocytes % 2.7 %; Immature Granulocytes Absolute 0.36 #; Lymphocytes # 0.9 10*3/uL (1.4-4.0); Lymphocytes % 6.4 % (21.2-54.2); Mean Corpuscular HGB Conc 31.3 GM/DL (32-36); Mean Corpuscular Volume 80.7 FL (87-102); Mean Platelet Volume 9.3 FL (9.6-12.0); Monocytes % 7.6 % (1.7-12.7); Neutrophils % 82.6 % (38.7-73.9); Red Cell Distribution Width 16.8 % (9.3-17.3)
[2020-10-31 05:03] LABS: Hemoglobin 8.1 GM/DL (14.0-18.0); Red Blood Count 3.21 MC/CUMM (3.8-5.5); White Blood Count 13.2 T/CUMM (4-12)
[2020-10-31 05:04] LABS: Platelet Count 230 T/CUMM (130-400)
[2020-10-31] MEDS: HEPARIN 5,000 UNIT/1 ML VIAL SUBCUT SCH ×2 (05:15→17:33)
[2020-10-31 05:28] LABS: Band Neutrophils 4 % (0-10); Eosinophils 2 % (0-10); Lymphocytes 6 % (20-55); Myelocytes 1 %; Segmented Neutrophils 86 % (50-85); Total Cells Counted 100
[2020-10-31 05:29] LABS: Hypochromasia 1+; Microcytosis 1+
[2020-10-31 05:30] LABS: Platelet Estimate Normal; Polychromasia Slight
[2020-10-31] MEDS: fentaNYL INJ 2,500 MCG in SODIUM CHLORIDE 0.9% 450 ML IV PRN (07:20)
[2020-10-31] MEDS: ASPIRIN CHEW 81 MG TABLET PO SCH (08:52)
[2020-10-31] MEDS: carvediloL 3.125 MG TABLET PO SCH ×2 (08:52→20:19)
[2020-10-31] MEDS: PANTOPRAZOLE 40 MG VIAL IV SCH (08:52)
[2020-10-31] MEDS: DEXMEDETOMIDINE 400 MCG in SODIUM CHLORIDE 0.9% 96 ML IV PRN (11:02)
[2020-10-31] MEDS ORDERED: POLYETHYLENE GLYCOL POWDER 17 GM PACK PO ONE (16:00)
[2020-10-31] MEDS: INSULIN GLARGINE 100 UNIT/ML SUBCUT SCH (20:18)
[2020-10-31] MEDS: ROSUVASTATIN 20 MG TABLET PO SCH (20:18)
[2020-11-01] MEDS: METOCLOPRAMIDE 10 MG/2 ML VIAL IV SCH ×4 (00:19→17:55)
[2020-11-01] MEDS: INSULIN REGULAR 100 UNIT/ML SUBCUT SCH ×4 (00:20→18:00)
[2020-11-01] MEDS: DEXMEDETOMIDINE 400 MCG in SODIUM CHLORIDE 0.9% 96 ML IV PRN ×3 (01:07→19:55)
[2020-11-01] MEDS: ALBUTEROL/IPRATROPIUM 3 ML NEB RESP TX SCH ×4 (01:13→19:17)
[2020-11-01] MEDS: HEPARIN 5,000 UNIT/1 ML VIAL SUBCUT SCH ×2 (03:54→16:55)
[2020-11-01 04:20] LABS: Basophils % 0.1 % (0.0-0.8); Eosinophils % 0.1 % (0.00-10.9); Hematocrit 25.2 VOL% (42.0-52.0); Immature Granulocytes % 3.2 %; Immature Granulocytes Absolute 0.52 #; Lymphocytes % 6.2 % (21.2-54.2); Mean Corpuscular HGB Conc 31.7 GM/DL (32-36); Mean Corpuscular Volume 80.5 FL (87-102); Mean Platelet Volume 9.2 FL (9.6-12.0); Monocytes % 5.4 % (1.7-12.7); Platelet Count 236 T/CUMM (130-400); Red Blood Count 3.13 MC/CUMM (3.8-5.5); Red Cell Distribution Width 16.8 % (9.3-17.3); White Blood Count 16.5 T/CUMM (4-12)
[2020-11-01 04:23] LABS: ABG HCO3 17.7 MMOL/L (20-26); ABG PCO2 27.7 MM HG (35-48); ABG PH 7.424 (7.35-7.45); ABG PO2 91.4 MM HG (80-95); ABG TCO2 18.6 MMOL/L (23-27); Allen Test Positive; Pt O2 Delivery Device Ventilator
[2020-11-01 04:24] LABS: ABG Oxygen Saturation 97.3 % (95-100)
[2020-11-01 04:34] LABS: Calcium 7.9 MG/DL (8.5-10.1); Osmolality,Calculated 296.2 MOS/KG (273-304); Potassium 4.6 MMOL/L (3.5-5.1)
[2020-11-01 04:49] LABS: Band Neutrophils 2 % (0-10); Hypochromasia 1+; Lymphocytes 4 % (20-55); Microcytosis 1+; Myelocytes 1 %; Segmented Neutrophils 90 % (50-85); Total Cells Counted 100
[2020-11-01] MEDS: ASPIRIN CHEW 81 MG TABLET PO SCH (10:54)
[2020-11-01] MEDS: PANTOPRAZOLE 40 MG VIAL IV SCH (10:54)
[2020-11-01] MEDS: carvediloL 3.125 MG TABLET PO SCH ×2 (10:55→20:15)
[2020-11-01] MEDS: ACETAMINOPHEN 325 MG TABLET PO PRN (10:55)
[2020-11-01] MEDS ORDERED: LEVOFLOXACIN 750 MG TABLET PER TUBE ONE (12:30)
[2020-11-01] MEDS: ROSUVASTATIN 20 MG TABLET PO SCH (20:15)
[2020-11-01] MEDS: INSULIN GLARGINE 100 UNIT/ML SUBCUT SCH (20:15)
[2020-11-02] MEDS: METOCLOPRAMIDE 10 MG/2 ML VIAL IV SCH ×4 (00:47→18:00)
[2020-11-02] MEDS: INSULIN REGULAR 100 UNIT/ML SUBCUT SCH ×4 (00:47→18:05)
[2020-11-02] MEDS: ALBUTEROL/IPRATROPIUM 3 ML NEB RESP TX SCH ×4 (01:20→19:42)
[2020-11-02 03:05] LABS: Basophils % 0.1 % (0.0-0.8); Eosinophils % 0.1 % (0.00-10.9); Hematocrit 24.8 VOL% (42.0-52.0); Hemoglobin 7.8 GM/DL (14.0-18.0); Immature Granulocytes Absolute 0.77 #; Lymphocytes # 1.1 10*3/uL (1.4-4.0); Lymphocytes % 5.5 % (21.2-54.2); Mean Corpuscular HGB Conc 31.5 GM/DL (32-36); Mean Corpuscular Volume 80.3 FL (87-102); Mean Platelet Volume 8.9 FL (9.6-12.0); Monocytes % 5.1 % (1.7-12.7); Neutrophils % 85.2 % (38.7-73.9); Platelet Count 227 T/CUMM (130-400); Red Blood Count 3.09 MC/CUMM (3.8-5.5); Red Cell Distribution Width 16.6 % (9.3-17.3); White Blood Count 19.3 T/CUMM (4-12)
[2020-11-02 03:21] LABS: Calcium 7.8 MG/DL (8.5-10.1); Osmolality,Calculated 296.2 MOS/KG (273-304); Potassium 4.3 MMOL/L (3.5-5.1)
[2020-11-02 03:48] LABS: Band Neutrophils 2 % (0-10); Lymphocytes 4 % (20-55); Myelocytes 1 %; Segmented Neutrophils 88 % (50-85); Total Cells Counted 100
[2020-11-02 03:50] LABS: Hypochromasia 1+
[2020-11-02 03:51] LABS: Platelet Estimate Normal
[2020-11-02 03:55] LABS: ABG HCO3 21.9 MMOL/L (20-26); ABG Oxygen Saturation 98.8 % (95-100); ABG PCO2 33.3 MM HG (35-48); ABG TCO2 19.6 MMOL/L (23-27)
[2020-11-02] MEDS: DEXMEDETOMIDINE 400 MCG in SODIUM CHLORIDE 0.9% 96 ML IV PRN ×2 (04:00→14:32)
[2020-11-02] MEDS: HEPARIN 5,000 UNIT/1 ML VIAL SUBCUT SCH ×2 (04:03→14:34)
[2020-11-02] MEDS: MORPHINE 4 MG/1 ML VIAL IV PRN (04:46)
[2020-11-02 07:31] LABS: Amorphous Crystals,Urine Occasional /HPF (Few); Bacteria,Urine Many /HPF (Few); Bilirubin,Urine Negative (Negative); Blood, Urine Large mg/dL (Negative); Glucose,Urine (UA) Negative (Negative); Ketones,Urine Negative (Negative); Nitrite,Urine Negative (Negative); Protein,Urine 100 MG/DL; RBC,Urine 1304 /HPF (0-4); Urine Appearance CLOUDY (Clear); Urine Color Amber (Yellow); Urine Specific Gravity 1.012 (1.001-1.035); Urine Urobilinogen < 2.0 EU/DL (0.2-1.0); WBC,Urine 1652 /HPF (0-6)
[2020-11-02] MEDS: carvediloL 3.125 MG TABLET PO SCH ×2 (10:25→21:00)
[2020-11-02] MEDS: PANTOPRAZOLE 40 MG VIAL IV SCH (10:53)
[2020-11-02] MEDS: ASPIRIN CHEW 81 MG TABLET PO SCH (10:57)
[2020-11-02] MEDS: ROSUVASTATIN 20 MG TABLET PO SCH (20:30)
[2020-11-02] MEDS: INSULIN GLARGINE 100 UNIT/ML SUBCUT SCH (21:00)
[2020-11-03] MEDS: ALBUTEROL/IPRATROPIUM 3 ML NEB RESP TX SCH ×4 (00:12→19:34)
[2020-11-03] MEDS: METOCLOPRAMIDE 10 MG/2 ML VIAL IV SCH ×5 (00:36→23:33)
[2020-11-03] MEDS: INSULIN REGULAR 100 UNIT/ML SUBCUT SCH ×4 (00:36→17:28)
[2020-11-03] MEDS: DEXMEDETOMIDINE 400 MCG in SODIUM CHLORIDE 0.9% 96 ML IV PRN (02:42)
[2020-11-03 03:56] LABS: ABG Base Excess 0.1 MMOL/L (-2.5-2.5); ABG HCO3 23.4 MMOL/L (20-26); ABG PH 7.481 (7.35-7.45); ABG PO2 177.1 MM HG (80-95); ABG TCO2 24.3 MMOL/L (23-27)
[2020-11-03] MEDS: MIDAZOLAM 100 MG in SODIUM CHLORIDE 0.9% 80 ML IV PRN ×2 (04:05→17:00)
[2020-11-03 04:21] LABS: Basophils % 0.1 % (0.0-0.8); Eosinophils # 0.1 10*3/uL (0.0-0.87); Eosinophils % 0.4 % (0.00-10.9); Hematocrit 23.9 VOL% (42.0-52.0); Hemoglobin 7.4 GM/DL (14.0-18.0); Immature Granulocytes % 4.3 %; Immature Granulocytes Absolute 0.84 #; Lymphocytes # 1.3 10*3/uL (1.4-4.0); Lymphocytes % 6.9 % (21.2-54.2); Mean Platelet Volume 9.5 FL (9.6-12.0); Monocytes % 5.8 % (1.7-12.7); Neutrophils % 82.5 % (38.7-73.9); Platelet Count 236 T/CUMM (130-400); Red Blood Count 2.95 MC/CUMM (3.8-5.5); Red Cell Distribution Width 16.7 % (9.3-17.3); White Blood Count 19.5 T/CUMM (4-12)
[2020-11-03 04:35] LABS: Potassium 3.6 MMOL/L (3.5-5.1)
[2020-11-03 04:41] LABS: Band Neutrophils 1 % (0-10); Eosinophils 1 % (0-10); Hypochromasia 2+; Lymphocytes 9 % (20-55); Microcytosis 1+; Platelet Estimate Adequate; Segmented Neutrophils 86 % (50-85); Total Cells Counted 100
[2020-11-03] MEDS ORDERED: LEVOFLOXACIN 500 MG TABLET PER TUBE SCH (09:00)
[2020-11-03] MEDS: ASPIRIN CHEW 81 MG TABLET PO SCH (10:51)
[2020-11-03] MEDS: PANTOPRAZOLE 40 MG VIAL IV SCH (10:51)
[2020-11-03] MEDS: carvediloL 3.125 MG TABLET PO SCH (10:51)
[2020-11-03] MEDS: LINEZOLID INJ 600 MG in PREMIX 1 EACH IV SCH ×2 (11:19→23:33)
[2020-11-03] MEDS: POTASSIUM CHLORIDE 20 MEQ TABLET PO PRN ×2 (11:19→14:05)
[2020-11-03] MEDS ORDERED: POTASSIUM CHLORIDE 20 MEQ/15 ML UDCUP PO ONE (11:38)
[2020-11-03] MEDS ORDERED: ASCORBIC ACID 500 MG TABLET PO SCH (11:39)
[2020-11-03] MEDS: HEPARIN 5,000 UNIT/1 ML VIAL SUBCUT SCH (14:05)
[2020-11-03] MEDS: ISOSORBIDE DINITRATE 10 MG TABLET NG SCH ×3 (14:05→20:20)
[2020-11-03] MEDS: MORPHINE 4 MG/1 ML VIAL IV PRN (19:12)
[2020-11-03] MEDS: INSULIN GLARGINE 100 UNIT/ML SUBCUT SCH (20:20)
[2020-11-03] MEDS: ASCORBIC ACID 500 MG TABLET NG SCH (20:20)
[2020-11-03] MEDS: ROSUVASTATIN 20 MG TABLET NG SCH (20:20)
[2020-11-03] MEDS: carvediloL 6.25 MG TABLET NG SCH (20:54)
[2020-11-04] MEDS: INSULIN REGULAR 100 UNIT/ML SUBCUT SCH ×4 (00:40→17:36)
[2020-11-04] MEDS: ALBUTEROL/IPRATROPIUM 3 ML NEB RESP TX SCH ×5 (01:08→19:11)
[2020-11-04] MEDS: MIDAZOLAM 100 MG in SODIUM CHLORIDE 0.9% 80 ML IV PRN (02:15)
[2020-11-04 03:27] LABS: ABG Base Excess 0.6 MMOL/L (-2.5-2.5); ABG Oxygen Saturation 99.4 % (95-100); ABG PCO2 33.1 MM HG (35-48); ABG PH 7.467 (7.35-7.45); ABG TCO2 21.9 MMOL/L (23-27); Allen Test Positive; Pt O2 Delivery Device Ventilator
[2020-11-04 04:14] LABS: Basophils % 0.2 % (0.0-0.8); Eosinophils # 0.1 10*3/uL (0.0-0.87); Eosinophils % 0.8 % (0.00-10.9); Hematocrit 25.4 VOL% (42.0-52.0); Hemoglobin 7.8 GM/DL (14.0-18.0); Lymphocytes # 1.2 10*3/uL (1.4-4.0); Lymphocytes % 7.1 % (21.2-54.2); Mean Corpuscular HGB Conc 30.7 GM/DL (32-36); Mean Corpuscular Volume 81.7 FL (87-102); Mean Platelet Volume 9.1 FL (9.6-12.0); Monocytes % 7.2 % (1.7-12.7); Neutrophils % 80.7 % (38.7-73.9); Platelet Count 254 T/CUMM (130-400); Red Blood Count 3.11 MC/CUMM (3.8-5.5); Red Cell Distribution Width 16.6 % (9.3-17.3); White Blood Count 17.6 T/CUMM (4-12)
[2020-11-04 04:35] LABS: Band Neutrophils 1 % (0-10); Lymphocytes 6 % (20-55); Microcytosis 1+; Platelet Estimate Adequate; Segmented Neutrophils 87 % (50-85); Total Cells Counted 100
[2020-11-04 04:36] LABS: Hypochromasia 2+
[2020-11-04 04:40] LABS: Calcium 7.9 MG/DL (8.5-10.1); Osmolality,Calculated 308.4 MOS/KG (273-304)
[2020-11-04 04:52] LABS: Calcium 7.4 MG/DL (8.5-10.1); Osmolality,Calculated 307.4 MOS/KG (273-304)
[2020-11-04] MEDS: METOCLOPRAMIDE 10 MG/2 ML VIAL IV SCH ×3 (05:18→17:36)
[2020-11-04] MEDS: MORPHINE 4 MG/1 ML VIAL IV PRN (06:25)
[2020-11-04] MEDS: ASCORBIC ACID 500 MG TABLET NG SCH ×2 (08:51→21:13)
[2020-11-04] MEDS: ASPIRIN CHEW 81 MG TABLET PO SCH (08:51)
[2020-11-04] MEDS: carvediloL 6.25 MG TABLET NG SCH ×2 (08:51→21:13)
[2020-11-04] MEDS: ISOSORBIDE DINITRATE 10 MG TABLET NG SCH ×3 (08:51→21:13)
[2020-11-04] MEDS: PANTOPRAZOLE 40 MG VIAL IV SCH (08:52)
[2020-11-04] MEDS: HEPARIN 5,000 UNIT/1 ML VIAL SUBCUT SCH (08:52)
[2020-11-04] MEDS: ERTAPENEM 1,000 MG in SODIUM CHLORIDE 0.9% 100 ML IV SCH (11:18)
[2020-11-04] MEDS: LINEZOLID INJ 600 MG in PREMIX 1 EACH IV SCH ×2 (11:20→23:04)
[2020-11-04] MEDS: SODIUM CHLORIDE 3% 4 ML NEB RESP TX SCH (19:11)
[2020-11-04] MEDS: ROSUVASTATIN 20 MG TABLET NG SCH (21:13)
[2020-11-04] MEDS: INSULIN GLARGINE 100 UNIT/ML SUBCUT SCH (21:14)
[2020-11-05] MEDS: ALBUTEROL/IPRATROPIUM 3 ML NEB RESP TX SCH ×4 (00:28→20:10)
[2020-11-05] MEDS: METOCLOPRAMIDE 10 MG/2 ML VIAL IV SCH ×3 (01:07→11:42)
[2020-11-05] MEDS: INSULIN REGULAR 100 UNIT/ML SUBCUT SCH ×4 (01:07→18:39)
[2020-11-05 05:57] LABS: Basophils % 0.2 % (0.0-0.8); Eosinophils # 0.1 10*3/uL (0.0-0.87); Eosinophils % 0.3 % (0.00-10.9); Hematocrit 25.9 VOL% (42.0-52.0); Immature Granulocytes % 2.8 %; Immature Granulocytes Absolute 0.55 #; Lymphocytes # 1.5 10*3/uL (1.4-4.0); Lymphocytes % 7.5 % (21.2-54.2); Mean Corpuscular HGB Conc 30.9 GM/DL (32-36); Mean Platelet Volume 9.1 FL (9.6-12.0); Monocytes % 8.2 % (1.7-12.7); Platelet Count 300 T/CUMM (130-400); Red Blood Count 3.16 MC/CUMM (3.8-5.5); Red Cell Distribution Width 16.6 % (9.3-17.3); White Blood Count 19.8 T/CUMM (4-12)
[2020-11-05 06:15] LABS: Osmolality,Calculated 303.1 MOS/KG (273-304); Potassium 3.8 MMOL/L (3.5-5.1)
[2020-11-05 06:28] LABS: Band Neutrophils 1 % (0-10); Eosinophils 1 % (0-10); Hypochromasia 1+; Lymphocytes 9 % (20-55); Microcytosis 1+; Segmented Neutrophils 84 % (50-85); Target Cells Slight; Total Cells Counted 100
[2020-11-05] MEDS: SODIUM CHLORIDE 3% 4 ML NEB RESP TX SCH ×2 (07:15→20:10)
[2020-11-05] MEDS: HEPARIN 5,000 UNIT/1 ML VIAL SUBCUT SCH (08:53)
[2020-11-05] MEDS: PANTOPRAZOLE 40 MG VIAL IV SCH (08:53)
[2020-11-05] MEDS: ASCORBIC ACID 500 MG TABLET NG SCH ×2 (08:53→20:37)
[2020-11-05] MEDS: ISOSORBIDE DINITRATE 10 MG TABLET NG SCH ×3 (08:53→20:37)
[2020-11-05] MEDS: ASPIRIN CHEW 81 MG TABLET PO SCH (08:53)
[2020-11-05] MEDS: carvediloL 12.5 MG TABLET NG SCH ×2 (08:53→20:37)
[2020-11-05] MEDS: methylPREDNISolone SOD SUC 40 MG/1 ML VIAL IV SCH ×2 (09:33→20:38)
[2020-11-05] MEDS: LINEZOLID INJ 600 MG in PREMIX 1 EACH IV SCH ×2 (11:53→23:50)
[2020-11-05] MEDS: ERTAPENEM 1,000 MG in SODIUM CHLORIDE 0.9% 100 ML IV SCH (12:45)
[2020-11-05] MEDS: INSULIN GLARGINE 100 UNIT/ML SUBCUT SCH (20:37)
[2020-11-05] MEDS: ROSUVASTATIN 20 MG TABLET NG SCH (20:37)
[2020-11-06] MEDS: ALBUTEROL/IPRATROPIUM 3 ML NEB RESP TX SCH ×4 (00:51→19:04)
[2020-11-06] MEDS: INSULIN REGULAR 100 UNIT/ML SUBCUT SCH ×4 (01:38→17:38)
[2020-11-06] MEDS: ACETAMINOPHEN 325 MG TABLET PO PRN ×3 (03:50→20:41)
[2020-11-06 05:03] LABS: Basophils % 0.1 % (0.0-0.8); Hemoglobin 7.7 GM/DL (14.0-18.0); Immature Granulocytes % 2.5 %; Immature Granulocytes Absolute 0.62 #; Lymphocytes % 4.1 % (21.2-54.2); Mean Corpuscular HGB Conc 30.8 GM/DL (32-36); Mean Corpuscular Volume 81.7 FL (87-102); Mean Platelet Volume 9.8 FL (9.6-12.0); Monocytes % 2.1 % (1.7-12.7); Neutrophils % 91.2 % (38.7-73.9); Platelet Count 326 T/CUMM (130-400); Red Blood Count 3.06 MC/CUMM (3.8-5.5); Red Cell Distribution Width 16.6 % (9.3-17.3); White Blood Count 24.4 T/CUMM (4-12)
[2020-11-06 05:22] LABS: Calcium 8.4 MG/DL (8.5-10.1); Osmolality,Calculated 319.1 MOS/KG (273-304); Potassium 3.8 MMOL/L (3.5-5.1)
[2020-11-06 05:24] LABS: Band Neutrophils 1 % (0-10); Hypochromasia 2+; Lymphocytes 3 % (20-55); Segmented Neutrophils 94 % (50-85); Total Cells Counted 100
[2020-11-06 05:25] LABS: Microcytosis 1+; Platelet Estimate Normal
[2020-11-06] MEDS: SODIUM CHLORIDE 3% 4 ML NEB RESP TX SCH ×2 (07:13→19:04)
[2020-11-06] MEDS: ASPIRIN CHEW 81 MG TABLET PO SCH (09:18)
[2020-11-06] MEDS: methylPREDNISolone SOD SUC 40 MG/1 ML VIAL IV SCH (09:18)
[2020-11-06] MEDS: PANTOPRAZOLE 40 MG VIAL IV SCH (09:18)
[2020-11-06] MEDS: ASCORBIC ACID 500 MG TABLET NG SCH ×2 (09:18→20:35)
[2020-11-06] MEDS: carvediloL 12.5 MG TABLET NG SCH ×2 (09:18→20:35)
[2020-11-06] MEDS: ISOSORBIDE DINITRATE 10 MG TABLET NG SCH ×3 (09:18→20:35)
[2020-11-06] MEDS: LINEZOLID INJ 600 MG in PREMIX 1 EACH IV SCH (09:19)
[2020-11-06] MEDS: HEPARIN 5,000 UNIT/1 ML VIAL SUBCUT SCH (09:19)
[2020-11-06] MEDS: ERTAPENEM 1,000 MG in SODIUM CHLORIDE 0.9% 100 ML IV SCH (14:39)
[2020-11-06] MEDS: ROSUVASTATIN 20 MG TABLET NG SCH (20:35)
[2020-11-06] MEDS: INSULIN GLARGINE 100 UNIT/ML SUBCUT SCH (20:36)
[2020-11-07] MEDS: INSULIN REGULAR 100 UNIT/ML SUBCUT SCH ×4 (00:25→17:47)
[2020-11-07] MEDS: ALBUTEROL/IPRATROPIUM 3 ML NEB RESP TX SCH ×4 (00:25→19:19)
[2020-11-07 05:29] LABS: Basophils % 0.1 % (0.0-0.8); Hematocrit 24.2 VOL% (42.0-52.0); Hemoglobin 7.2 GM/DL (14.0-18.0); Immature Granulocytes % 1.7 %; Immature Granulocytes Absolute 0.31 #; Lymphocytes # 1.2 10*3/uL (1.4-4.0); Lymphocytes % 6.4 % (21.2-54.2); Mean Corpuscular HGB Conc 29.8 GM/DL (32-36); Mean Corpuscular Volume 83.7 FL (87-102); Mean Platelet Volume 9.5 FL (9.6-12.0); Monocytes % 6.7 % (1.7-12.7); Neutrophils % 85.1 % (38.7-73.9); Platelet Count 344 T/CUMM (130-400); Red Blood Count 2.89 MC/CUMM (3.8-5.5); Red Cell Distribution Width 16.7 % (9.3-17.3); White Blood Count 18.6 T/CUMM (4-12)
[2020-11-07 05:49] LABS: Calcium 8.3 MG/DL (8.5-10.1); Osmolality,Calculated 326.3 MOS/KG (273-304); Potassium 3.8 MMOL/L (3.5-5.1)
[2020-11-07] MEDS: ACETAMINOPHEN 325 MG TABLET PO PRN (05:50)
[2020-11-07 05:52] LABS: Alanine Aminotransferase 20 U/L (16-61); Albumin 1.6 G/DL (3.4-5.0); Alkaline Phosphatase 89 U/L (45-117); Aspartate Amino Transferase 22 U/L (0-37); Bilirubin,Indirect 0.3 MG/DL (0.0-1.0); Bilirubin,Total < 0.39 MG/DL (0.2-1.0); Total Protein 5.8 G/DL (5.0-7.5)
[2020-11-07] MEDS: SODIUM CHLORIDE 3% 4 ML NEB RESP TX SCH ×2 (07:39→19:19)
[2020-11-07] MEDS: carvediloL 12.5 MG TABLET NG SCH ×2 (09:52→20:26)
[2020-11-07] MEDS: ASPIRIN CHEW 81 MG TABLET PO SCH (09:52)
[2020-11-07] MEDS: ASCORBIC ACID 500 MG TABLET NG SCH ×2 (09:52→20:26)
[2020-11-07] MEDS: PANTOPRAZOLE 40 MG VIAL IV SCH (09:53)
[2020-11-07] MEDS: HEPARIN 5,000 UNIT/1 ML VIAL SUBCUT SCH (09:53)
[2020-11-07] MEDS: ISOSORBIDE DINITRATE 10 MG TABLET NG SCH ×3 (09:54→20:26)
[2020-11-07] MEDS: ERTAPENEM 1,000 MG in SODIUM CHLORIDE 0.9% 100 ML IV SCH (09:55)
[2020-11-07] MEDS: ROSUVASTATIN 20 MG TABLET NG SCH (20:26)
[2020-11-07] MEDS: INSULIN GLARGINE 100 UNIT/ML SUBCUT SCH (20:27)
[2020-11-08] MEDS: INSULIN REGULAR 100 UNIT/ML SUBCUT SCH ×4 (00:26→18:07)
[2020-11-08] MEDS: INSULIN GLARGINE 100 UNIT/ML SUBCUT SCH ×2 (00:26→20:50)
[2020-11-08] MEDS: ALBUTEROL/IPRATROPIUM 3 ML NEB RESP TX SCH ×4 (01:23→19:42)
[2020-11-08 05:48] LABS: Basophils % 0.1 % (0.0-0.8); Eosinophils % 0.1 % (0.00-10.9); Hematocrit 26.8 VOL% (42.0-52.0); Hemoglobin 8.1 GM/DL (14.0-18.0); Immature Granulocytes Absolute 0.14 #; Lymphocytes # 1.7 10*3/uL (1.4-4.0); Lymphocytes % 12.4 % (21.2-54.2); Mean Corpuscular HGB Conc 30.2 GM/DL (32-36); Mean Platelet Volume 9.3 FL (9.6-12.0); Monocytes % 7.7 % (1.7-12.7); Neutrophils % 78.7 % (38.7-73.9); Platelet Count 404 T/CUMM (130-400); Red Blood Count 3.19 MC/CUMM (3.8-5.5); Red Cell Distribution Width 16.4 % (9.3-17.3); White Blood Count 13.7 T/CUMM (4-12)
[2020-11-08 06:03] LABS: INR 1.2; PT Patient Result 12.3 SECS (9.8-11.9)
[2020-11-08 06:18] LABS: Calcium 8.6 MG/DL (8.5-10.1); Osmolality,Calculated 336.4 MOS/KG (273-304); Potassium 3.8 MMOL/L (3.5-5.1)
[2020-11-08] MEDS: SODIUM CHLORIDE 3% 4 ML NEB RESP TX SCH ×2 (07:30→19:42)
[2020-11-08] MEDS: ERTAPENEM 1,000 MG in SODIUM CHLORIDE 0.9% 100 ML IV SCH (08:51)
[2020-11-08] MEDS: PANTOPRAZOLE 40 MG VIAL IV SCH (09:22)
[2020-11-08] MEDS: LACTATED RINGERS 1,000 ML IV SCH (10:02)
[2020-11-08] MEDS ORDERED: LIDOCAINE 2% 5 ML VIAL ONE (11:48)
[2020-11-08] MEDS ORDERED: propofoL 200 MG/20 ML VIAL IV ONE (11:48)
[2020-11-08] MEDS: ASPIRIN CHEW 81 MG TABLET PO SCH (13:35)
[2020-11-08] MEDS: ISOSORBIDE DINITRATE 10 MG TABLET NG SCH ×3 (13:35→20:49)
[2020-11-08] MEDS: ASCORBIC ACID 500 MG TABLET NG SCH ×2 (13:36→20:49)
[2020-11-08] MEDS: carvediloL 12.5 MG TABLET NG SCH ×2 (13:36→20:49)
[2020-11-08] MEDS: SODIUM CHLOR 0.45% KCL 20 MEQ 20 MEQ/1,000 ML BAG IV SCH (14:00)
[2020-11-08] MEDS: ROSUVASTATIN 20 MG TABLET NG SCH (20:49)
[2020-11-09] MEDS: INSULIN REGULAR 100 UNIT/ML SUBCUT SCH ×4 (00:10→17:59)
[2020-11-09] MEDS: ALBUTEROL/IPRATROPIUM 3 ML NEB RESP TX SCH ×4 (00:12→19:20)
[2020-11-09] MEDS: SODIUM CHLOR 0.45% KCL 20 MEQ 20 MEQ/1,000 ML BAG IV SCH ×2 (01:25→14:53)
[2020-11-09] MEDS: LACTATED RINGERS 1,000 ML IV SCH (10:01)
[2020-11-09] MEDS: ASPIRIN CHEW 81 MG TABLET PO SCH (10:06)
[2020-11-09] MEDS: PANTOPRAZOLE 40 MG VIAL IV SCH (10:06)
[2020-11-09] MEDS: ISOSORBIDE DINITRATE 10 MG TABLET NG SCH ×3 (10:06→21:00)
[2020-11-09] MEDS: ASCORBIC ACID 500 MG TABLET NG SCH ×2 (10:06→21:00)
[2020-11-09] MEDS: carvediloL 12.5 MG TABLET NG SCH ×2 (10:06→21:00)
[2020-11-09] MEDS: ERTAPENEM 1,000 MG in SODIUM CHLORIDE 0.9% 100 ML IV SCH (10:08)
[2020-11-09] MEDS: SODIUM CHLORIDE 3% 4 ML NEB RESP TX SCH ×2 (12:06→19:20)
[2020-11-09] MEDS: ROSUVASTATIN 20 MG TABLET NG SCH (21:00)
[2020-11-09] MEDS: INSULIN GLARGINE 100 UNIT/ML SUBCUT SCH (21:02)
[2020-11-10] MEDS: ALBUTEROL/IPRATROPIUM 3 ML NEB RESP TX SCH ×4 (00:10→19:24)
[2020-11-10] MEDS: INSULIN REGULAR 100 UNIT/ML SUBCUT SCH ×4 (01:30→17:43)
[2020-11-10] MEDS: SODIUM CHLOR 0.45% KCL 20 MEQ 20 MEQ/1,000 ML BAG IV SCH ×2 (04:32→17:43)
[2020-11-10 06:05] LABS: Basophils % 0.1 % (0.0-0.8); Eosinophils # 0.2 10*3/uL (0.0-0.87); Hematocrit 25.3 VOL% (42.0-52.0); Hemoglobin 7.7 GM/DL (14.0-18.0); Immature Granulocytes Absolute 0.18 #; Lymphocytes # 1.4 10*3/uL (1.4-4.0); Lymphocytes % 7.6 % (21.2-54.2); Mean Corpuscular HGB Conc 30.4 GM/DL (32-36); Mean Corpuscular Volume 82.1 FL (87-102); Mean Platelet Volume 9.4 FL (9.6-12.0); Monocytes % 3.6 % (1.7-12.7); NRBC # 0.02 10*3/uL; Neutrophils % 86.7 % (38.7-73.9); Platelet Count 324 T/CUMM (130-400); Red Blood Count 3.08 MC/CUMM (3.8-5.5); Red Cell Distribution Width 16.5 % (9.3-17.3); White Blood Count 18.6 T/CUMM (4-12)
[2020-11-10 06:20] LABS: Calcium 7.8 MG/DL (8.5-10.1); Potassium 3.4 MMOL/L (3.5-5.1)
[2020-11-10] MEDS: SODIUM CHLORIDE 3% 4 ML NEB RESP TX SCH ×2 (07:22→19:24)
[2020-11-10] MEDS: ASPIRIN CHEW 81 MG TABLET PO SCH (08:42)
[2020-11-10] MEDS: POTASSIUM CHLORIDE 20 MEQ TABLET PO PRN ×3 (08:42→15:21)
[2020-11-10] MEDS: ISOSORBIDE DINITRATE 10 MG TABLET NG SCH ×3 (08:42→20:40)
[2020-11-10] MEDS: ASCORBIC ACID 500 MG TABLET NG SCH ×2 (08:43→20:25)
[2020-11-10] MEDS: carvediloL 12.5 MG TABLET NG SCH ×2 (08:43→20:25)
[2020-11-10] MEDS: ACETAMINOPHEN 325 MG TABLET PO PRN ×3 (08:43→23:08)
[2020-11-10] MEDS: ERTAPENEM 1,000 MG in SODIUM CHLORIDE 0.9% 100 ML IV SCH (08:44)
[2020-11-10] MEDS: PANTOPRAZOLE 40 MG VIAL IV SCH (08:44)
[2020-11-10] MEDS ORDERED: POTASSIUM CHLORIDE 20 MEQ TABLET PO ONE (10:15)
[2020-11-10] MEDS ORDERED: MAGNESIUM SULF RIDER 2 GM in PREMIX 1 EACH IV ONE (10:15)
[2020-11-10] MEDS: LACTATED RINGERS 1,000 ML IV SCH (10:33)
[2020-11-10] MEDS: ROSUVASTATIN 20 MG TABLET NG SCH (20:25)
[2020-11-10] MEDS: INSULIN GLARGINE 100 UNIT/ML SUBCUT SCH (20:27)
[2020-11-10] MEDS: MELATONIN 3 MG TABLET PO PRN (20:43)
[2020-11-11] MEDS: INSULIN REGULAR 100 UNIT/ML SUBCUT SCH ×4 (00:05→17:50)
[2020-11-11] MEDS: ALBUTEROL/IPRATROPIUM 3 ML NEB RESP TX SCH ×4 (01:36→20:11)
[2020-11-11 06:20] LABS: Basophils % 0.1 % (0.0-0.8); Eosinophils # 0.5 10*3/uL (0.0-0.87); Eosinophils % 3.2 % (0.00-10.9); Hematocrit 25.9 VOL% (42.0-52.0); Hemoglobin 7.8 GM/DL (14.0-18.0); Immature Granulocytes % 0.9 %; Immature Granulocytes Absolute 0.15 #; Lymphocytes # 1.6 10*3/uL (1.4-4.0); Lymphocytes % 10.2 % (21.2-54.2); Mean Corpuscular HGB Conc 30.1 GM/DL (32-36); Mean Corpuscular Volume 84.4 FL (87-102); Mean Platelet Volume 9.5 FL (9.6-12.0); Monocytes % 3.9 % (1.7-12.7); NRBC # 0.02 10*3/uL; Neutrophils % 81.7 % (38.7-73.9); Platelet Count 312 T/CUMM (130-400); Red Blood Count 3.07 MC/CUMM (3.8-5.5); Red Cell Distribution Width 16.4 % (9.3-17.3); White Blood Count 15.9 T/CUMM (4-12)
[2020-11-11] MEDS: SODIUM CHLOR 0.45% KCL 20 MEQ 20 MEQ/1,000 ML BAG IV SCH ×2 (06:28→17:58)
[2020-11-11 06:45] LABS: Calcium 7.5 MG/DL (8.5-10.1); Osmolality,Calculated 298.7 MOS/KG (273-304); Potassium 3.5 MMOL/L (3.5-5.1)
[2020-11-11] MEDS: SODIUM CHLORIDE 3% 4 ML NEB RESP TX SCH ×2 (07:16→20:11)
[2020-11-11] MEDS: carvediloL 12.5 MG TABLET NG SCH ×2 (08:57→23:01)
[2020-11-11] MEDS: ISOSORBIDE DINITRATE 10 MG TABLET NG SCH ×3 (08:57→23:00)
[2020-11-11] MEDS: ASCORBIC ACID 500 MG TABLET NG SCH ×2 (08:57→22:59)
[2020-11-11] MEDS: PANTOPRAZOLE 40 MG VIAL IV SCH (08:57)
[2020-11-11] MEDS: ASPIRIN CHEW 81 MG TABLET PO SCH (08:57)
[2020-11-11] MEDS: ERTAPENEM 1,000 MG in SODIUM CHLORIDE 0.9% 100 ML IV SCH (08:58)
[2020-11-11] MEDS: ACETAMINOPHEN 325 MG TABLET PO PRN (09:00)
[2020-11-11] MEDS: LACTATED RINGERS 1,000 ML IV SCH (09:44)
[2020-11-11] MEDS: MENTHOL/ZINC OXIDE OINT 71 GM JAR TOP SCH ×2 (17:51→22:57)
[2020-11-11] MEDS: INSULIN GLARGINE 100 UNIT/ML SUBCUT SCH (22:58)
[2020-11-11] MEDS: ROSUVASTATIN 20 MG TABLET NG SCH (23:00)
[2020-11-11] MEDS: MELATONIN 3 MG TABLET PO PRN (23:00)
[2020-11-12] MEDS: ALBUTEROL/IPRATROPIUM 3 ML NEB RESP TX SCH ×4 (00:43→19:32)
[2020-11-12 06:23] LABS: Basophils % 0.1 % (0.0-0.8); Eosinophils # 0.5 10*3/uL (0.0-0.87); Eosinophils % 3.3 % (0.00-10.9); Hematocrit 27.3 VOL% (42.0-52.0); Hemoglobin 8.3 GM/DL (14.0-18.0); Immature Granulocytes % 1.4 %; Lymphocytes # 1.4 10*3/uL (1.4-4.0); Lymphocytes % 10.4 % (21.2-54.2); Mean Corpuscular HGB Conc 30.4 GM/DL (32-36); Mean Corpuscular Volume 83.7 FL (87-102); Mean Platelet Volume 9.5 FL (9.6-12.0); Monocytes % 4.3 % (1.7-12.7); Neutrophils % 80.5 % (38.7-73.9); Platelet Count 324 T/CUMM (130-400); Red Blood Count 3.26 MC/CUMM (3.8-5.5); Red Cell Distribution Width 16.5 % (9.3-17.3); White Blood Count 13.9 T/CUMM (4-12)
[2020-11-12] MEDS: SODIUM CHLOR 0.45% KCL 20 MEQ 20 MEQ/1,000 ML BAG IV SCH (06:44)
[2020-11-12] MEDS: INSULIN REGULAR 100 UNIT/ML SUBCUT SCH ×4 (06:44→19:18)
[2020-11-12 06:53] LABS: Albumin 1.5 G/DL (3.4-5.0); Bilirubin,Direct 0.13 MG/DL (0.0-0.20); Bilirubin,Indirect 0.4 MG/DL (0.0-1.0); Bilirubin,Total 0.5 MG/DL (0.2-1.0); Calcium 7.5 MG/DL (8.5-10.1); Osmolality,Calculated 290.4 MOS/KG (273-304); Potassium 3.7 MMOL/L (3.5-5.1); Total Protein 5.6 G/DL (5.0-7.5)
[2020-11-12] MEDS: SODIUM CHLORIDE 3% 4 ML NEB RESP TX SCH ×2 (07:12→19:32)
[2020-11-12] MEDS: LACTATED RINGERS 1,000 ML IV SCH (08:00)
[2020-11-12] MEDS: PANTOPRAZOLE 40 MG VIAL IV SCH (09:50)
[2020-11-12] MEDS: ASPIRIN CHEW 81 MG TABLET PO SCH (09:52)
[2020-11-12] MEDS: carvediloL 12.5 MG TABLET NG SCH ×2 (09:52→22:53)
[2020-11-12] MEDS: ASCORBIC ACID 500 MG TABLET NG SCH ×2 (09:52→22:52)
[2020-11-12] MEDS: MENTHOL/ZINC OXIDE OINT 71 GM JAR TOP SCH ×2 (09:52→22:50)
[2020-11-12] MEDS: ISOSORBIDE DINITRATE 10 MG TABLET NG SCH ×3 (09:52→22:53)
[2020-11-12] MEDS: ROSUVASTATIN 20 MG TABLET NG SCH (22:53)
[2020-11-12] MEDS: MELATONIN 3 MG TABLET PO PRN (22:53)
[2020-11-12] MEDS: INSULIN GLARGINE 100 UNIT/ML SUBCUT SCH (22:54)
[2020-11-13] MEDS: INSULIN REGULAR 100 UNIT/ML SUBCUT SCH ×5 (00:13→23:46)
[2020-11-13] MEDS: ALBUTEROL/IPRATROPIUM 3 ML NEB RESP TX SCH ×2 (01:00→08:00)
[2020-11-13] MEDS: SODIUM CHLOR 0.45% KCL 20 MEQ 20 MEQ/1,000 ML BAG IV SCH ×2 (06:37→21:41)
[2020-11-13] MEDS: PANTOPRAZOLE 40 MG TABLET PO SCH (07:49)
[2020-11-13] MEDS: SODIUM CHLORIDE 3% 4 ML NEB RESP TX SCH (08:00)
[2020-11-13] MEDS: ASCORBIC ACID 500 MG TABLET NG SCH ×2 (09:22→21:42)
[2020-11-13] MEDS: MENTHOL/ZINC OXIDE OINT 71 GM JAR TOP SCH ×2 (09:23→21:45)
[2020-11-13] MEDS: ASPIRIN CHEW 81 MG TABLET PO SCH (09:23)
[2020-11-13] MEDS: carvediloL 12.5 MG TABLET NG SCH ×2 (09:23→21:42)
[2020-11-13] MEDS: ISOSORBIDE DINITRATE 10 MG TABLET NG SCH ×3 (09:25→21:42)
[2020-11-13] MEDS: ROSUVASTATIN 20 MG TABLET NG SCH (21:42)
[2020-11-13] MEDS: INSULIN GLARGINE 100 UNIT/ML SUBCUT SCH (21:42)
[2020-11-13] MEDS: MELATONIN 3 MG TABLET PO PRN (21:51)
[2020-11-13] MEDS: ACETAMINOPHEN 325 MG TABLET PO PRN (21:51)
[2020-11-14 04:30] LABS: Basophils % 0.2 % (0.0-0.8); Eosinophils # 0.2 10*3/uL (0.0-0.87); Eosinophils % 1.6 % (0.00-10.9); Hematocrit 25.5 VOL% (42.0-52.0); Hemoglobin 7.8 GM/DL (14.0-18.0); Immature Granulocytes % 2.1 %; Immature Granulocytes Absolute 0.23 #; Lymphocytes # 1.2 10*3/uL (1.4-4.0); Lymphocytes % 10.6 % (21.2-54.2); Mean Corpuscular HGB Conc 30.6 GM/DL (32-36); Mean Corpuscular Volume 83.1 FL (87-102); Monocytes % 5.4 % (1.7-12.7); Neutrophils % 80.1 % (38.7-73.9); Platelet Count 255 T/CUMM (130-400); Red Blood Count 3.07 MC/CUMM (3.8-5.5); Red Cell Distribution Width 16.8 % (9.3-17.3)
[2020-11-14 04:55] LABS: Calcium 7.2 MG/DL (8.5-10.1); Osmolality,Calculated 291.3 MOS/KG (273-304); Potassium 4.4 MMOL/L (3.5-5.1)
[2020-11-14] MEDS: PANTOPRAZOLE 40 MG TABLET PO SCH (06:11)
[2020-11-14] MEDS: INSULIN REGULAR 100 UNIT/ML SUBCUT SCH ×2 (06:11→11:53)
[2020-11-14] MEDS: ACETAMINOPHEN 325 MG TABLET PO PRN (06:38)
[2020-11-14] MEDS: ISOSORBIDE DINITRATE 10 MG TABLET NG SCH (09:13)
[2020-11-14] MEDS: ASCORBIC ACID 500 MG TABLET NG SCH (09:13)
[2020-11-14] MEDS: ASPIRIN CHEW 81 MG TABLET PO SCH (09:13)
[2020-11-14] MEDS: carvediloL 12.5 MG TABLET NG SCH (09:14)
[2020-11-14] MEDS: MENTHOL/ZINC OXIDE OINT 71 GM JAR TOP SCH (09:15)
[2020-11-14] MEDS: SODIUM CHLOR 0.45% KCL 20 MEQ 20 MEQ/1,000 ML BAG IV SCH (09:15)
[2020-11-14 11:51] VITALS: BP 146/52
== END 2020-11-14 13:37 | DRG 280 ==
LOC: N.ED 12:02 → N.CC 13:03 → SUATTDRO 13:12 → N.EDINP 13:12 → N.CC 13:46 → N.5E 11-05 17:48
PROVIDERS: ADMIT Internal Medicine Interventional Cardiology; ATTEND Internal Medicine
PROC: CLCCHCL (ICD-10-PCS; 2020-10-23 13:45)
PROC: EGDWPEG (ICD-10-PCS; 2020-11-08 10:35)